=== PATIENT | female | born 1995 | race African-American/Black ===

== ENCOUNTER 2020-05-25 13:50 | Emergency (ER) | payer BC ==
[2020-05-25 18:46] LABS: SARS-CoV-2 MS2 Positive; SARS-CoV-2 N Gene Positive; SARS-CoV-2 S Gene Positive; SARS-CoV-2 by NAA DETECTED (NotDetected); SARS-CoV-2 orf1ab Positive
== END 2020-05-25 14:30 | disposition home or self-care (01) ==
LOC: ERS 13:50
DX: U07.1 COVID-19 (principal)
CPT/HCPCS: 87635; 99283; U0003